=== PATIENT | female | born 1945 | race Caucasian/White ===

== ENCOUNTER → 2017-03-12 | Outpatient (CLI) | payer OTHER | END | disposition home or self-care (01) | LOC: CFH 12:05 | PROVIDERS: ATTEND Physician Assistant | DX: E03.9 Hypothyroidism, unspecified (principal); E04.1 Nontoxic single thyroid nodule; I10 Essential (primary) hypertension; E78.1 Pure hyperglyceridemia; J45.998 Other asthma; K21.9 Gastro-esophageal reflux disease without esophagitis; J30.9 Allergic rhinitis, unspecified | CPT/HCPCS: 76536 ==

== ENCOUNTER → 2017-04-16 | Outpatient (CLI) | payer OTHER | END | disposition home or self-care (01) | LOC: CFH 12:39 | PROVIDERS: ATTEND Physician Assistant | DX: I07.1 Rheumatic tricuspid insufficiency (principal); R01.1 Cardiac murmur, unspecified; I10 Essential (primary) hypertension; I05.8 Other rheumatic mitral valve diseases | CPT/HCPCS: 93306 ==

== ENCOUNTER → 2017-07-14 | Outpatient (CLI) | payer OTHER ==
[~2017-07-14] MED LIST: REGADENOSON 0.4 MG/5 ML SYRINGE ONE
== END | disposition home or self-care (01) ==
LOC: CFH 08:13
PROVIDERS: ATTEND Physician Assistant
DX: R06.02 Shortness of breath (principal); R07.9 Chest pain, unspecified; E03.9 Hypothyroidism, unspecified; E78.1 Pure hyperglyceridemia; I10 Essential (primary) hypertension; J45.998 Other asthma; J30.9 Allergic rhinitis, unspecified; R53.83 Other fatigue; R76.9 Abnormal immunological finding in serum, unspecified; B00.9 Herpesviral infection, unspecified; R01.1 Cardiac murmur, unspecified; R73.01 Impaired fasting glucose; K21.9 Gastro-esophageal reflux disease without esophagitis; E04.1 Nontoxic single thyroid nodule
CPT/HCPCS: 78452; 93017; A9502; J2785

== ENCOUNTER → 2017-11-05 | Outpatient (CLI) | payer OTHER | END | disposition home or self-care (01) | LOC: CFH 09:45 | PROVIDERS: ATTEND Nurse Practitioner Primary Care | DX: Z13.820 Encounter for screening for osteoporosis (principal); R53.83 Other fatigue; E03.9 Hypothyroidism, unspecified; E55.9 Vitamin D deficiency, unspecified; E78.2 Mixed hyperlipidemia; I10 Essential (primary) hypertension; J44.0 Chronic obstructive pulmonary disease with (acute) lower respiratory infection; K21.9 Gastro-esophageal reflux disease without esophagitis; R01.1 Cardiac murmur, unspecified; E04.1 Nontoxic single thyroid nodule; Z78.0 Asymptomatic menopausal state | CPT/HCPCS: 77080 ==

== ENCOUNTER → 2018-08-18 | Outpatient (CLI) | payer OTHER | END | disposition home or self-care (01) | LOC: CFH 07:16 | PROVIDERS: ATTEND Physician Assistant | DX: M47.812 Spondylosis without myelopathy or radiculopathy, cervical region (principal); M48.02 Spinal stenosis, cervical region; E03.9 Hypothyroidism, unspecified; E78.1 Pure hyperglyceridemia; I10 Essential (primary) hypertension; J45.998 Other asthma; K21.9 Gastro-esophageal reflux disease without esophagitis | CPT/HCPCS: 72141 ==